=== PATIENT | female | born 1940 | race Caucasian/White ===

== ENCOUNTER → 2020-04-15 | Outpatient (CLI) | payer MEDICARE ==
--- NOTE | 2020-04-15 16:13 | RAD ---
EXAM: Right hip, 2 views; sacrum and coccyx, 3 views. HISTORY: Pain. COMPARISON: None. FINDINGS: 2 views of the right hip and 3 views of the sacrum and coccyx are obtained. There is lateral hip joint space narrowing with subchondral sclerosis, subchondral cyst formation and marginal acetabular and femoral head spurring. There is no fracture, dislocation or subluxation. There is degenerative subchondral cyst formation involving the sacroiliac joints. There is a small sclerotic focus along the inferior iliac aspect of the right sacroiliac joint, likely due to subchondral sclerosis or a bone island There is degenerative change involving the visualized lower lumbar spine. There is mild posterior positioning of the coccyx relative to the sacrum, chronic in appearance. IMPRESSION: 1. Moderate bilateral hip osteoarthritis. 2. 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 Electronically signed by: Olga Khalil MD (04/15/2020 4:10 PM) [facility]
== END | disposition home or self-care (01) ==
LOC: RAD 15:02
PROVIDERS: ATTEND Family Medicine
DX: M47.898 Other spondylosis, sacral and sacrococcygeal region (principal); M16.0 Bilateral primary osteoarthritis of hip
CPT/HCPCS: 72220; 73502